=== PATIENT | female | born 1955 | race Caucasian/White ===

== ENCOUNTER 2018-05-31 02:25 | Emergency (ER) | payer OTHER ==
[~2018-05-31] VITALS: Ht 165.1 cm; Wt 78.2 kg
[2018-05-31 02:33] VITALS: Ht 165.1 cm; Wt 78.2 kg
[2018-05-31] MEDS ORDERED: OMEPRAZOLE20 M1 (02:35)
[2018-05-31] MEDS ORDERED: TRAZODONE HCL150 MG PO (02:35)
[2018-05-31] MEDS ORDERED: LISINOPRIL20 MG PO (02:35)
[2018-05-31 03:18] LABS: BASOPHILS 0.6 % (0-2); EOSINOPHILS 2.4 % (0-7); HEMOGLOBIN 11.2 g/dL (12-16); IMMATURE GRANULOCYTES 0.2 % (0-5); LYMPHOCYTES 27.9 % (15-50); MCH 29.4 pg (26.0-34.0); MCHC 32.9 g/dL (31.0-37.0); MCV 89.2 fL (80.0-100.0); MONOCYTES 8.9 % (2-11); PLATELET COUNT 228 10x3/uL (130-400); RBC 3.81 10x6/uL (4.00-5.40); RDW 13.6 % (11.5-14.5); WBC 6.2 10x3/uL (4.8-10.8)
[2018-05-31 03:26] LABS: INR 0.94 (0.85-1.17); PROTIME 12.1 SECONDS (11.6-15.0)
[2018-05-31 03:34] LABS: ALBUMIN 3.4 g/dL (3.4-5.0); ALKALINE PHOSPHATASE 86 U/L (46-116); ALT (SGPT) 30 U/L (10-68); BILIRUBIN - TOTAL 0.13 mg/dL (0.2-1.3); CALC OSMOLALITY 281 mosm/kg (275-300); CALCIUM 8.2 mg/dL (8.5-10.1); CARBON DIOXIDE 25.5 mmol/L (21.0-32.0); CHLORIDE - SERUM 105 mmol/L (98-107); GLUCOSE 103 mg/dL (74-106); POTASSIUM - SERUM 3.8 mmol/L (3.5-5.1); PROTEIN - SERUM 6.9 g/dL (6.4-8.2); SODIUM 139 mmol/L (136-145); UREA NITROGEN 25 mg/dL (7-18); eGFR NON AFRICAN AMERICAN 60 mL/min (90-120)
[2018-05-31 03:44] LABS: CKMB 0.6 U/L (0.0-3.6); CREATINE KINASE 59 UL (21-215); MAGNESIUM - SERUM 1.8 mg/dL (1.8-2.4); TROPONIN-I < 0.017 ng/mL (0.000-0.060)
[2018-05-31 05:00] VITALS: BP 137/79
== END 2018-05-31 05:00 | disposition home or self-care (01) ==
LOC: D.ER 02:25
PROVIDERS: Family Medicine
DX: R07.89 Other chest pain (principal); M79.602 Pain in left arm; R68.84 Jaw pain

== ENCOUNTER → 2018-06-03 10:59 | Outpatient (CLI) | payer OTHER ==
[2018-05-31 02:33] VITALS: BMI 28.6
[~2018-06-03 10:59] MED LIST: LISINOPRIL20 MG PO; OMEPRAZOLE20 M1; TRAZODONE HCL150 MG PO
--- NOTE | 2018-06-06 14:57 | ST ---
PATIENT:GEN DIOR MEDICAL RECORD: [id number] SEX: F LOCATION:[facility] ORDER #: ADMISSION DATE: 06/03/18 AGE OF PATIENT: 62 REFERRING PHYSICIAN: INTERPRETING PHYSICIAN: WALE MONTOYA MD DATE OF SERVICE: 06/03/2018 Nuclear Stress Test INDICATION: Angina, abnormal ECG, hypertension, and family history of coronary artery disease. She was exercised on standard Kevin protocol for 5 minutes 45 seconds achieving greater than 85% max target heart rate response with 31 mCi of sestamibi injected at peak stress, 11 mCi were used previously for rest images. FINDINGS: Gated SPECT reveals preserved ejection fraction at 79% with good wall motion and thickening and brightening throughout all segments. SPECT imaging Cardiolite was used as myocardial fusion agent. There is homogeneous uptake throughout all segments at rest and stress with no evidence of inducible ischemia or previous infarction. OVERALL IMPRESSION: 1. This is a normal nuclear stress test with no evidence of inducible ischemia or previous infarction. 2. Gated SPECT reveals a preserved ejection fraction at 79%. In this patient with ongoing symptomatology, the current scan does not suggest the presence of hemodynamically significant coronary artery disease. Evaluate noncardiac etiology of chest pain. TRANSINT:[id number] Voice Confirmation ID: [id number] DOCUMENT ID: [id number] WALE MONTOYA MD at 1457 CC: [id number] DICTATION DATE: 06/04/18 1014 VESSEL LINER: 06/04/18 2236 [facility] CLI 06/03/18 [place] [id number]
== END | disposition home or self-care (01) ==
LOC: D.HCCARDIO 10:59
PROVIDERS: ATTEND Internal Medicine Interventional Cardiology
DX: I20.9 Angina pectoris, unspecified (principal)

== ENCOUNTER → 2018-12-25 11:03 | Outpatient (CLI) | payer OTHER ==
[2018-05-31 02:33] VITALS: BMI 28.6
--- NOTE | 2018-12-28 09:56 | EC ---
PATIENT:GEN DIOR DATE OF SERVICE: 12/25/18 SEX: F MEDICAL RECORD: [id number] DATE OF : [birth year] [facility] AGE OF PATIENT: 63 ADMISSION DATE: 12/25/18 REFERRING PHYSICIAN: INTERPRETING PHYSICIAN: MICHELLE QUEVEDO MD ECHOCARDIOGRAM REPORT ECHO CHARGES 4 ECHO COMPLETE Date: 12/25/18 CLINICAL DIAGNOSIS: LVH H/O HTN/ANGINA ECHOCARDIOGRAPHIC MEASUREMENTS (adult normal given) AC root (d.<3.7cm) 3.5 cm LV Septum d (<1.2 cm> 1.1 cm Valve Excursion 1.9 cm LV Septum (systole) 1.7 cm Left Atria (s.<4.0cm> 3.4 cm LVPW d(<1.2cm) 1.1 cm RV (d.<2.3cm) 2.4 cm LVPW (sytole) 1.9 cm LV diastole(<5.6CM) 4.5 cm MV E-F(>70mm/sec) cm LV systole 2.1 cm LVOT Diameter 1.7 cm MV exc.(>10mm) cm Est.ejection fraction (50-75%) % DOPPLER: LVIT cm/sec A 99.0 cm/sec E 53.0 cm/sec LA cm/sec RVSP 27.0 mmHg LVOT 140 cm/sec AOP1/2T m/s Asc. Ao 165 cm/sec RVOT 78.0 cm/sec RA cm/sec PA 118 cm/sec AV Gradient Peak 11.0 mmHg AV Mean 6.9 mmHg AV Area 2.0 cm MV Gradient Peak 3.6 mmHg MV Mean 1.4 mmHg MV Area cm COMMENTS: OP - HC Team Assembly Line Machine Operator: Kevin METZGEROE City Administrator: 3 Dr. Elder TAPE# PACS Pericardial Effusion N DATE OF SERVICE: 12/25/2018 Adequate 2D, color flow imaging, spectral Doppler, and M-Mode No LVH. LV internal dimension is normal. Wall motion is normal. EF is greater than or equal to 55%. Aortic valve is tricuspid. No evidence of stenosis by Doppler interrogation. Left atrium is normal at 3.4 cm. Mitral valve shows no prolapse. Trace MR. Right-sided chambers are grossly normal. Trace TR. TRANSINT:[id number] Voice Confirmation ID: [id number] DOCUMENT ID: [id number] ECHOCARDIOGRAM REPORT [id number] GEN DIOR,MICHELLE Bell MD at 0956 CC: [id number] DICTATION DATE: 12/27/18951 CLINIC RECEPTIONIST: 12/27/18 1125 [facility] CLI 12/25/18 [place] [id number] [place] [id number]
== END | disposition home or self-care (01) ==
LOC: D.HCCECHO 11:03
PROVIDERS: ATTEND Internal Medicine Interventional Cardiology
DX: I10 Essential (primary) hypertension (principal)

== ENCOUNTER 2019-09-14 11:12 | Observation (INO) | payer OTHER ==
[~2019-09-14] VITALS: Ht 165.1 cm; Wt 85.1 kg
--- NOTE | ~2019-09-14 | HEMODYNAMI ---
PATIENT:GEN DIOR MEDICAL RECORD: [id number] : 59 LOCATION:[facility] [address] [facility]# [id number] ADMISSION DATE: 09/14/19 Generatedon:09/15/201912:56 Patient name: GEN DIOR Patient #: [id number] : 1955 Date of study: 09/15/2019 Page: Of Hemodynamic Procedure Report Patient Data Patient Demographics Procedure consent was obtained First Name: GEN Gender: Female Last Name: OVI : 1955 Patient #: [id number] Age: 63 year(s) Race: SSN: [id number] Additional ID: [id number] Contact details Address: [place] [address] State: [place] City: [place] Zip code: [address] Admission Admission Data Admission Date: 09/14/2019 Admission Time: 16:16 Arrival Date: 09/14/2019 Arrival Time: 16:16 Admit Source: Other Insurance Payor: Private Room #: D.2102 health insurance [facility] #: [id number] Height (in.): 64.96 BSA: 1.92 (m2) Height (cm.): 165 BMI: 31.22 (kg/m2) Weight (lbs.): 187.39 Weight (kg.): 85 Lab Results Lab Result Date: 09/15/2019 Lab Result Time: 0:00 Biochemistry Name Units Result Min Max BUN mg/dl 16 --(---*)-- 7 18 Creatinine mg/dl 1 --(--*-)-- 0.6 1.3 eGFR ml/min 60 *-(----)-- 90 120 NONAFRICAN CBC Name Units Result Min Max Hemoglobin g/dl 10.9 *-(----)-- 13.5 17.5 Procedure Procedure Types Cath Procedure Diagnostic Procedure LHC LHC w/Coronaries Procedure Description Procedure Date Procedure Date: 09/15/2019 Procedure Start Time: 12:38 Procedure End Time: 12:50 Procedure Staff Name Function Constanza Howard MD Performing Physician Michaela Toledo RT Monitor Imelda Zepeda RT Scrub Len Martinez RN Nurse Procedure Data Cath Procedure Fluoroscopy Diagnostic fluoroscopy Total fluoroscopy Time: 1.6 time: 1.6 min min Diagnostic fluoroscopy Total fluoroscopy dose: 111 dose: 111 mGy mGy Contrast Material Contrast Material Type Amount (ml) Isovue 300 30 Entry Location Entry Primary Successful Side Size Upsize Upsize Entry Closure Succes sful Closure Location (Fr) 1 (Fr) 2 (Fr) Remarks Device Remarks Femoral Right 5 Fr artery Estimated blood loss: 5 ml Procedure Complications No complications Procedure Medications Medication Administration Route Dosage Oxygen etCO2 Nasal cannula 2 l/min Lidocaine 2% added to field 20 Heparin Flush Bag added to field 2 bags (1000units/500ml NS) 0.9% NaCl I.V. 100 ml/hr Versed I.V. 1 mg Fentanyl I.V. 50 mcg Versed I.V. 1 mg Fentanyl I.V. 50 mcg Hemodynamics Rest BSA: 1.92 (m2) HGB: 10.9 (g/dl) O2 Consumption: Estimated: 186.44 (ml/min) O2 Co nsumption indexed: Estimated:97.1 (ml/min/m) Heart Rate: 77 (bpm) Pressure Samples Time Site Value (mmHg) Purpose Heart Use Rate(bpm) 12:45 LV 113/-11,9 Snapshot 71 12:45 LV 117/57,54 EDP 73 Snapshots Pre Cath Intra NCS Post Cath Vital Signs Time Heart Resp SPO2 etCO2 NIBP (mmHg) Rhythm Pain Sedation Rate (ipm) (%) (mmHg) Status Level (bpm) 12:29:59 76 11 99 30.6 162/84(129) NSR 0 (11) 10(A) , No pain 12:34:32 86 17 96 14.9 143/81(101) NSR 0 (11) 10(A) , No pain 12:39:00 69 14 97 35.1 127/67(94) NSR 0 (11) 10(A) , No pain 12:43:26 73 18 94 29.1 119/73(92) NSR 0 (11) 9(A) , No pain Medications Time Medication Route Dose Verified Delivered Reason Notes Eff ectiveness by by 12:31:54 Oxygen etCO2 2 Norred Buffie used for Nasal l/min Lee Martinez data administrator cannula 12:31:59 Lidocaine 2% added 20ml Jessicared Norred for local to vial Lee Howard MD anesthetic field 12:32:05 Heparin Flush added 2 Norred Norred used for Bag to bags Lee Howard MD procedure (1000units/500ml field NS) 12:32:14 0.9% NaCl I.V. 100 Jessicared Buffie Per ml/hr Lee Maritnez RN physician 12:35:42 Versed I.V. 1 mg Jessicared Buffie for Lee Martinez RN sedation 12:35:51 Fentanyl I.V. 50 Norred Buffie for mcg Lee Martinez RN sedation 12:40:55 Versed I.V. 1 mg Jessicared Buffie for Lee Martinez RN sedation 12:40:58 Fentanyl I.V. 50 Jessicared Buffie for mcg Lee Martinez RN sedation Procedure Log Time Note 11:34:38 Informed consent obtained and on chart 11:36:10 Admit Source: Other 11:36:21 Arrival Date: 09/14/2019 4:16:00 PM 11:36:36 Insurance Payor : Private health insurance 11:37:39 Patient Height : 64.96 inches 11:37:42 Patient Weight : 187.39 lbs 11:38:56 Lab Result : BUN 16 mg/dl 11:38:56 Lab Result : Hemoglobin 10.9 g/dl 11:38:56 Lab Result : eGFR NONAFRICAN 60 ml/min 11:38:56 Lab Result : Creatinine 1 mg/dl 11:39:11 Diagnostic Cath Status : Urgent 11:40:25 Procedure Status Urgent Heart Cath (IP). 11:40:34 Constanza Howard MD sent for patient. Start room use. 11:40:35 Time tracking: Regular hours (M-F 7:00 - 5:00) 11:40:41 Plan of Care:Hemodynamics will remain stable., Cardiac rhythm will remain stable., Comfort level will be maintained., Respiratory function will remain adequate., Patient/ family verbilizes understanding of procedure., Procedure tolerated without complication., Recovers from procedure without complications.. 11:54:50 Risk of Mortality: 0.6 11:54:54 Risk of blood transfusion: 8.2 11:54:59 Risk of CURTIS: 2.8 11:55:29 2) 60-89 Mildly reduced kidney function, and other findings (as for stage 1) point to kidney disease. 11:55:33 Maximum allowable contrast dose (3.7 X eGFR X 0.75)166 ml. 12:15:08 Patient received from Med II to CCL 1 Alert and oriented. Tansferred to table in Supine position. 12:15:10 Warm blankets applied, and jones hugger turned on for patient comfort. 12:15:10 Correct patient and procedure confirmed by team. 12:15:11 ECG and BP/O2 sat monitors applied to patient. 12:28:34 Vital chart was started 12:28:36 Baseline sample Acquired. 12:30:52 Baseline sample Acquired. 12:30:58 Rhythm: sinus rhythm 12:30:59 Full Disclosure recording started 12:31:04 H&P Date Dictated: 09/15/2019 New H&P dictated by physician.. 12:31:06 Pre-procedure instructions explained to patient. 12:31:06 Pre-op teaching completed and patient verbalized understanding. 12:31:10 Family unavailable. 12:31:11 Patient NPO since Midnight. 12:31:13 Is the patient allergic to Iodine/contrast media? No. 12:31:26 Was the patient premedicated? Yes 12:31:54 Oxygen 2 l/min etCO2 Nasal cannula was administered by Len Martinez RN; used for procedure; Verbal order read back and verified. 12:31:59 Lidocaine 2% 20ml vial added to field was administered by Constanza Howard MD; for local anesthetic; Verbal order read back and verified. 12:32:05 Heparin Flush Bag (1000units/500ml NS) 2 bags added to field was administered by Constanza Howard MD; used for procedure; Verbal order read back and verified. 12:32:14 0.9% NaCl 100 ml/hr I.V. was administered by Len Martinez RN; Per physician; Verbal order read back and verified. 12:32:57 Is patient on blood thinner?Yes 12:33:00 ACC The patient was administered the following blood thiners within the last 24 hours: ACCAspirin 12:33:03 Patient diabetic? No. 12:33:05 Previous problem with sedation/anesthesia? No ? 12:33:07 Snore? Yes 12:33:08 Sleep apnea? Yes 12:33:09 Deviated septum? No 12:33:10 Opens mouth fully? Yes 12:33:11 Sticks out tongue? Yes 12:33:38 Airway obstruction? No ? 12:33:40 Dentures? No ? 12:33:46 Pre procedure: right dorsailis pedis pulse 2+ Normal; easily identifiable; not easily obliterated 12:33:49 Pre procedure: left dorsailis pedis pulse 2+ Normal; easily identifiable; not easily obliterated 12:33:52 Patient pain scale 0/10 ?. 12:34:16 IV patent on arrival in port with 0.9% NaCl at [facility]. 12:34:28 Lab results completed and on chart. 12:34:52 Right groin area was prepped with chlora-prep and draped in sterile fashion 12:34:53 Alarms reviewed by R. N. 12:34:53 Sharps counted by scrub and verified by R.N. 12:34:54 Physician arrived 12:34:55 --------ALL STOP TIME OUT------ 12:34:57 Final Timeout: patient, procedure, and site verified with staff and physician. All members of the team are in agreement. 12:35:00 Right groin site verified by team. 12:35:03 Fire Safety Assessment: A--An alcohol-based skin anteseptic being used preoperatively., C--Open oxygen or nitrous oxide is being used., D--An ESU, laser, or fiber-optic light is being used. 12:35:07 Physical assessment completed. ASA score P 2 - A patient with mild systemic disease as per Constanza Howard MD. 12:35:12 Sedation plan: IV Moderate Sedation Medication:Versed, Fentanyl 12:35:35 Use device set Radial Dx or PCI 12:35:36 ACIST Syringe (73663) opened to sterile field. 12:35:36 Medline Cath Pack ([id number]) opened to sterile field. 12:35:37 Bag Decanter (2002) opened to sterile field. 12:35:37 ACIST Hand Control (17276) opened to sterile field. 12:35:38 ACIST Manifold (23342) opened to sterile field. 12:35:38 Tegaderm 4 x 4 (1626W) opened to sterile field. 12:35:42 Versed 1 mg I.V. was administered by Len Martinez RN; for sedation; Verbal order read back and verified. 12:35:42 EMERALD Guide Wire (568-368) opened to sterile field. 12:35:46 Procedure started. 12:35:51 Fentanyl 50 mcg I.V. was administered by Len Martinez RN; for sedation; Verbal order read back and verified. 12:38:51 Local anesthetic to right femoral artery with Lidocaine 2% by Constanza Howard MD.INITIAL ACCESS ONLY 12:38:52 Access obtained with 4Fr micropunture. 12:39:00 A 5 Fr sheath was inserted into the Right Femoral artery 12:39:02 Zero performed for pressure channel P1 12:40:55 Versed 1 mg I.V. was administered by Len Martinez RN; for sedation; Verbal order read back and verified. 12:40:58 Fentanyl 50 mcg I.V. was administered by Len Martinez RN; for sedation; Verbal order read back and verified. 12:41:01 SHEATH 5FR [place] (SZC280) opened to sterile field. 12:41:02 DIAGNOSTIC Multipack 5Fr catheter set (CA0204) opened to sterile field. 12:41:14 5 Fr jl 4 guide catheter was inserted over the wire 12:41:55 LCA angiography performed. 12:41:58 Injector settings: Ml/sec: 2, Volume: 4, 12:42:01 Catheter removed. 12:42:07 5 Fr 3drc guide catheter was inserted over the wire 12:43:37 RCA angiography performed. 12:43:42 Injector settings: Ml/sec: 3, Volume: 6, 12:43:53 Catheter removed. 12:44:03 5 Fr pigtail guide catheter was inserted over the wire 12:45:36 LV hemodynamics recorded. 12:45:37 LV gram done using ARAYA 12:45:40 Injector settings: Ml/sec: 12, Volume: 8, 12:45:57 Catheter removed. 12:46:48 Procedure ended.(Physican Out) 12:48:45 Fluoroscopy time 01.60 minutes. 12:48:50 Fluoroscopy dose: 111 mGy 12:48:50 Flurop Dose total: 111 12:48:55 Dose Area Product 24722 mGy/cm. 12:48:59 Contrast amount:Isovue 300 30ml. 12:49:02 Maximum allowable dose exceeded? No. 12:49:02 Sharps counted by scrub and verified by R.N. 12:49:04 Insertion/operative site no bleeding no hematoma. 12:49:25 Post-op/insertion site Right Femoral artery dressed using a 4 x 4 and Tegaderm. 12:49:28 Post procedure rhythm: unchanged. 12:49:31 Estimated blood loss: 5 ml 12:49:32 Post procedure instruction explained to patient.Patient verbalizes understanding. 12:49:33 Patient needs reinforcement of post procedure teaching. 12:50:29 Procedure and supply charges have been captured, reviewed, submitted and are correct. 12:50:33 Procedure Complication : No complications 12:50:44 Vital chart was stopped 12:50:46 [facility] Findings: mild to moderate CAD (<70%) 12:50:48 Operative report dictated upon procedure completion. 12:50:49 See physician's report for complete and final results. 12:50:51 Report given to [facility]. 12:50:54 Patient transfered to [facility] with Stretcher. 12:50:55 Procedure ended. 12:50:55 Full Disclosure recording stopped 12:51:00 End room use (Document Last) 12:51:47 End room use (Document Last) 12:52:04 End room use (Document Last) Device Usage Item Name Manufacture Quantity Catalog Hospital Part Current Minimal L ot# / Number Charge Number Stock Stock Serial# Code ACIST Acist 1 59302 062015 555642 [id number] 20 Syringe Medical (34919) Systems Inc Medline Medline 1 [id number] 369023 41104 550271 5 Cath Pack ([id number]) Bag Microtek 1 080284 69722 570342 5 Decanter Medical Inc. () ACIST Hand Acist 1 24399 056404 752304 604736 5 Control Medical (45167) Systems Inc ACIST Acist 1 67318 768225 779953 341710 5 Manifold Medical (68561) Systems Inc Tegaderm 4 3M 1 1626W 229047 270604 531577 5 x 4 (1626W) EMERALD Cardinal 1 502-455 959063 711286 529676 5 Guide Wire [facility] (188-119) SHEATH 5FR Terumo 1 QNP941 088460 655659 741440 5 [place] (BYC717) DIAGNOSTIC Cardinal 1 WU3966 917945 27613 814312 30 Gregory Environmental 5Fr catheter set (QO2790) Signature Audit Sabine Stage Time Signature Unsigned Intra-Procedure 09/15/2019 Michaela Toledo 12:51:47 PM RT(R) Intra-Procedure 09/15/2019 Len Martinez RN 12:52:04 PM Intra-Procedure 09/15/2019 Constanza Howard MD 12:56:29 PM [facility] [address] [place] [address]
[2019-09-14 11:20] VITALS: Ht 165.1 cm; Wt 85.1 kg
[2019-09-14 11:57] LABS: LYMPHOCYTES 31.9 % (15-50); MCH 28.1 pg (26.0-34.0); MCHC 32.4 g/dL (31.0-37.0); MCV 86.7 fL (80.0-100.0); MEAN PLATELET VOLUME 9.5 fL (7.4-10.4); NEUTROPHILS 64.6 % (40-80); RBC 4.27 10x6/uL (4.00-5.40); RDW 13.6 % (11.5-14.5); WBC 5.7 10x3/uL (4.8-10.8)
[2019-09-14 11:58] LABS: PLATELET COUNT 294 10x3/uL (130-400)
[2019-09-14 12:02] LABS: CALC OSMOLALITY 282 mosm/kg (275-300); CALCIUM 8.5 mg/dL (8.5-10.1); CARBON DIOXIDE 23.2 mmol/L (21.0-32.0); CHLORIDE - SERUM 107 mmol/L (98-107); CREATININE - SERUM 0.9 mg/dL (0.6-1.3); GLUCOSE 98 mg/dL (74-106); POTASSIUM - SERUM 3.8 mmol/L (3.5-5.1); SODIUM 141 mmol/L (136-145); UREA NITROGEN 19 mg/dL (7-18); eGFR NON AFRICAN AMERICAN 67 mL/min (90-120)
[2019-09-14 12:04] LABS: APTT 29.3 SECONDS (22.8-39.4); INR 0.95 (0.85-1.17); PROTIME 12.6 SECONDS (11.6-15.0)
[2019-09-14 12:19] LABS: ALBUMIN 3.7 g/dL (3.4-5.0); ALKALINE PHOSPHATASE 92 U/L (30-120); ALT (SGPT) 31 U/L (10-68); CKMB 0.8 U/L (0.0-3.6); CREATINE KINASE 78 UL (21-215); MAGNESIUM - SERUM 1.8 mg/dL (1.8-2.4); PROTEIN - SERUM 7.1 g/dL (6.4-8.2); TROPONIN-I < 0.017 ng/mL (0.000-0.060)
[2019-09-14 12:27] VITALS: BP 149/94
--- NOTE | 2019-09-14 12:29 | NUR ---
PT REPORTS THAT PAIN IN JAW/ARM IS 5/10 PRIOR TO FIRST NITRO.
--- NOTE | 2019-09-14 12:40 | NUR ---
PT REPORTS NO RELIEF FROM NITRO.
[2019-09-14 13:38] VITALS: BP 137/79
[2019-09-14 14:30] VITALS: BP 137/79
[2019-09-14 15:30] VITALS: BP 158/90
[2019-09-14 16:33] LABS: CKMB 0.7 U/L (0.0-3.6); CREATINE KINASE 66 UL (21-215); TROPONIN-I < 0.017 ng/mL (0.000-0.060)
--- NOTE | 2019-09-14 16:56 | NUR ---
RECEIVED REPORT FROM SAMIR IN ER. AWAITING TRANSPORT TO [facility] 2.
--- NOTE | 2019-09-14 19:05 | NUR ---
REPORT RECEIVED, WILL CONTINUE POC. PATIENT IS AAOX4, LYING IN SEMI-FOWLERS POSITION. NO S/S OF DISTRESS OBSERVED, RR EVEN AND UNLABORED ON ROOM AIR. PATIENT DENIES NEEDS AT THIS TIME. CL IN REACH, BED LOCKED AND LOWERED. WILL CTM.
[2019-09-14 21:51] VITALS: BP 195/87
[2019-09-14 22:24] LABS: CKMB 0.8 U/L (0.0-3.6); CREATINE KINASE 84 UL (21-215); TROPONIN-I < 0.017 ng/mL (0.000-0.060)
[2019-09-15 01:26] VITALS: BP 156/82
--- NOTE | 2019-09-15 03:02 | NUR ---
I have reviewed this patient and I concur with the Shift Assessment completed by the Licensed Practical Nurse today this shift.
[2019-09-15 04:07] LABS: BASOPHILS 0.5 % (0-2); EOSINOPHILS 2.6 % (0-7); HEMATOCRIT 33.2 % (36.0-48.0); HEMOGLOBIN 10.9 g/dL (12-16); LYMPHOCYTES 25.8 % (15-50); MCH 28.7 pg (26.0-34.0); MCHC 32.8 g/dL (31.0-37.0); MCV 87.4 fL (80.0-100.0); MEAN PLATELET VOLUME 9.2 fL (7.4-10.4); MONOCYTES 9.4 % (2-11); NEUTROPHILS 61.7 % (40-80); PLATELET COUNT 242 10x3/uL (130-400); WBC 5.7 10x3/uL (4.8-10.8)
[2019-09-15 04:46] LABS: ALBUMIN 3.2 g/dL (3.4-5.0); ALKALINE PHOSPHATASE 81 U/L (30-120); ALT (SGPT) 33 U/L (10-68); CALC OSMOLALITY 283 mosm/kg (275-300); CALCIUM 8.2 mg/dL (8.5-10.1); CARBON DIOXIDE 27.6 mmol/L (21.0-32.0); CHLORIDE - SERUM 108 mmol/L (98-107); CHOL - HDL RATIO 3.6 ratio (2.3-4.1); CHOLESTEROL, TOTAL 185 mg/dL (0-200); CKMB 0.7 U/L (0.0-3.6); CREATINE KINASE 61 UL (21-215); GLUCOSE 100 mg/dL (74-106); HDL CHOLESTEROL 52 mg/dL (32-96); LDL CHOLESTEROL 118 mg/dL (0-100); LDL-HDL RATIO 2.3 ratio (1.5-3.5); MAGNESIUM - SERUM 1.7 mg/dL (1.8-2.4); POTASSIUM - SERUM 3.4 mmol/L (3.5-5.1); PROTEIN - SERUM 6.5 g/dL (6.4-8.2); SODIUM 142 mmol/L (136-145); TRIGLYCERIDE 75 mg/dL (30-200); TROPONIN-I < 0.017 ng/mL (0.000-0.060); UREA NITROGEN 16 mg/dL (7-18); eGFR NON AFRICAN AMERICAN 60 mL/min (90-120)
[2019-09-15 05:03] VITALS: BP 156/92
--- NOTE | 2019-09-15 07:00 | NUR ---
RECEIVED BEDSIDE REPORT AND ASSUMED CARE OF PATIENT. PATIENT ALERT AND ORIENTED X 4, WATCHING TV. NO NEEDS AT THIS TIME. ON RA, BBS CLEAR AND EQUAL. IV 22 GA TO LEFT HAND, NSL. LEFT CHEST IMPLANTED PORT ACCESSED, FLUSHES EASILY WITH POSITIVE BLOOD RETURN. HEAD TO TOE ASSESSMENT COMPLETED.
--- NOTE | 2019-09-15 09:10 | NUR ---
OBTAINED CONSENT FOR EMOTIONAL SUPPORT TEACHER PROCEDURE AND BLOOD CONSENT. NO NEEDS AT THIS TIME.
--- NOTE | 2019-09-15 09:40 | NUR ---
LAB DRAWN AND SENT TO LAB FOR POTASSIUM REDRAW.
[2019-09-15 09:46] VITALS: BP 167/101
--- NOTE | 2019-09-15 10:52 | NUR ---
PREOP MEDS GIVEN PER ORDER.
[2019-09-15 12:49] VITALS: BP 144/98
--- NOTE | 2019-09-15 13:14 | NUR ---
RECEIVED PATIENT BACK FROM INSIDE SALES SPECIALIST, ALERT AND ORIENTED X 4, RIGHT GROIN SITE SOFT WITH NO HEMATOMA OR BLEEDING NOTED. DRESSING C/D/I, DISTAL DP AND PT PULSES ON RIGHT +2. PORT INFUSING NS AT 100 ML/HR. NO NEEDS AT THIS TIME.
--- NOTE | 2019-09-15 13:36 | NUR ---
PATIENT GIVEN LATE TRAY, RIGHT GROIN SITE SOFT NO HEMATOMA OR BLEEDING NOTED. DRESSING C/D/I
[2019-09-15] MEDS ORDERED: BAYER CHEWABLE81 MG PO (14:18)
[2019-09-15] MEDS ORDERED: LIPITOR20 MG PO (14:18)
[2019-09-15 14:45] VITALS: BP 134/71
--- NOTE | 2019-09-15 14:56 | NUR ---
PATIENT HAS FOLLOWUP WITH PCP DR. CHOWDARY ON 23 SEPTEMBER [address] FORRESTER ON 13 OCTOBER 2019 AT 1400 SCHEDULED.
--- NOTE | 2019-09-15 15:46 | NUR ---
PATIENT GIVEN DISCHARGE INSTRUCTIONS, VERBALIZES UNDERSTANDING, AND IV AND PORT ACCESS DISCONTINUED. RIGHT GROIN SITE SOFT NO HEMATOMA OR BLEEDING NOTED.
[2019-09-15 16:36] VITALS: BP 135/78
--- NOTE | 2019-09-15 17:11 | NUR ---
PATIENT DISCHARGED, TAKEN TO MEET RIDE AT ER ENTRANCE VIA WHEELCHAIR. VSS. RIGHT GROIN SOFT NO HEMATOMA OR BLEEDING NOTED.
== END 2019-09-15 17:12 | disposition home or self-care (01) ==
LOC: D.ER 11:12 → D.M2 16:16 → OBSVTIME 16:16 → D.M2 09-15 17:12
PROVIDERS: Family Medicine; ADMIT Family Medicine; ATTEND Family Medicine
DX: I20.0 Unstable angina (principal); I10 Essential (primary) hypertension; K21.9 Gastro-esophageal reflux disease without esophagitis; E87.6 Hypokalemia; E83.42 Hypomagnesemia; Z85.3 Personal history of malignant neoplasm of breast; R68.84 Jaw pain; M79.602 Pain in left arm